=== PATIENT | female | born 1990 | race Caucasian/White ===

== ENCOUNTER 2024-10-19 07:41 | Day surgery (SDC) | payer BC ==
[~2024-10-19 07:41] MED LIST: Chloroprocaine 3% 30 MG/ML 20 ML SDV ONE; Dexamethasone 4 MG/ML 5 ML MDV ONE; Midazolam 1 MG/ML 2 ML SDV ONE; Ondansetron 4 MG/2 ML SDV IVPUSH PRN; Pregabalin 25 MG Cap PO ONE; Ropivacaine 0.5% 5 MG/ML 30 ML SDV ONE; Sodium Chloride 0.9% 10 ML Syringe FLUSH PRN; Sodium Chloride 0.9% 10 ML Syringe FLUSH SCH; fentaNYL 100 MCG/2 ML SDV IVPUSH PRN; fentaNYL 100 MCG/2 ML SDV ONE; propofoL 1,000 MG/100 ML 100 ML ONE
[2024-10-19] MEDS: Lactated Ringers 1,000 ML IV SCH (08:15)
[2024-10-19] MEDS: Pregabalin 25 MG Cap PO SCH (08:40)
[2024-10-19] MEDS: Acetaminophen 325 MG Tab PO ONE (08:41)
[2024-10-19] MEDS: oxyCODONE ER 10 MG TAB.ER PO ONE (08:41)
[2024-10-19] MEDS: Scopalamine 1mg/3day Transdermal Patch TOP ONE (08:41)
[2024-10-19 09:17] LABS: INR 1.13; PROTHROMBIN TIME 11.9 SECONDS (9.7-12.0)
[2024-10-19 09:19] LABS: PTT,PARTIAL THROMBOPLSTIN TIME 26.6 SECONDS (21.7-31.4)
[2024-10-19] MEDS ORDERED: Lactated Ringers 1,000 ML ONE (09:57)
[2024-10-19] MEDS ORDERED: ePHEDrine 50 MG/ML SDV ONE (09:57)
[2024-10-19] MEDS ORDERED: ceFAZolin 2 GM Vial ONE ×2 (10:05→10:14)
[2024-10-19] MEDS: Morphine 8 MG, EPINEPHrine 0.3 MG, Cefuroxime 750 MG, Ketorolac 30 MG, Sodium Chloride ... PRN (10:46)
[2024-10-19] MEDS: VANCOmycin 1 GM SDV ONE (10:53)
[2024-10-19] MEDS: Tranexamic Acid 1,000 MG/10 ML Vial ONE (10:53)
[2024-10-19] MEDS: HYDROmorphone 0.5 MG/0.5 ML Syringe IVPUSH PRN (11:30)
[2024-10-19] MEDS: oxyCODONE 5 MG Tab PO PRN (12:05)
== END 2024-10-19 14:25 | disposition home or self-care (01) ==
LOC: JD.SDS 07:41
PROVIDERS: ATTEND Orthopaedic Surgery
DX: M17.11 Unilateral primary osteoarthritis, right knee (principal); F33.2 Major depressive disorder, recurrent severe without psychotic features; F41.1 Generalized anxiety disorder; F60.3 Borderline personality disorder; F43.10 Post-traumatic stress disorder, unspecified; E66.01 Morbid (severe) obesity due to excess calories; Z68.41 Body mass index [BMI] 40.0-44.9, adult; Z79.899 Other long term (current) drug therapy; Z91.040 Latex allergy status; Z88.1 Allergy status to other antibiotic agents; Z91.013 Allergy to seafood
CPT/HCPCS: 0055T; 27447; 36415; 64447; 64454; 73560; 85610; 85730; 97116; 97161; 97530; A9270; C1713; C1776; J0171; J0690; J0697; J1100; J1885; J2250; J2272; J2401; J2704; J2795; J3010; J7120; 01402; 64450; J3490

== ENCOUNTER → 2024-12-13 | Day surgery (SDC) | payer BC, OTHER ==
[~2024-12-13] MED LIST changes: -Chloroprocaine 3% 30 MG/ML 20 ML SDV ONE; -Dexamethasone 4 MG/ML 5 ML MDV ONE; +HYDROmorphone 0.5 MG/0.5 ML Syringe IVPUSH PRN; +Lidocaine 1% 5 ML VIAL ONE; +Lidocaine 2% 5 ML SDV ONE; -Pregabalin 25 MG Cap PO ONE; +Propofol 200 MG/20 ML SDV ONE; +dexmedeTOMIDine HCl 200 MCG/2 ML SDV ONE; +ePHEDrine 50 MG/ML SDV ONE; -propofoL 1,000 MG/100 ML 100 ML ONE
[2024-12-13] MEDS: Lactated Ringers 1,000 ML IV SCH (05:55)
== END | disposition home or self-care (01) ==
LOC: JD.SDS 06:00
PROVIDERS: ATTEND Orthopaedic Surgery
DX: M24.661 Ankylosis, right knee (principal); T84.82XA Fibrosis due to internal orthopedic prosthetic devices, implants and grafts, initial encounter; E66.01 Morbid (severe) obesity due to excess calories; Z88.8 Allergy status to other drugs, medicaments and biological substances; Z68.41 Body mass index [BMI] 40.0-44.9, adult; Z91.013 Allergy to seafood; Z91.040 Latex allergy status
CPT/HCPCS: 27570; 81025; J2003; J2250; J2704; J2795; J3010; J7120; 01380; 64447; J3490